=== PATIENT | male | born 1980 | race Caucasian/White ===

== ENCOUNTER → 2021-02-09 | Outpatient (CLI) | payer OTHER | LOC: ECHO 08:00 | DX: R06.02 Shortness of breath (principal); Z82.49 Family history of ischemic heart disease and other diseases of the circulatory system; I42.9 Cardiomyopathy, unspecified | CPT/HCPCS: ECHO; 93306 ==

== ENCOUNTER → 2021-03-16 | Outpatient (CLI) | payer OTHER | LOC: HEART 5 10:50 | DX: R06.02 Shortness of breath (principal) ==

== ENCOUNTER → 2021-05-01 | Outpatient (CLI) | payer OTHER ==
[2021-05-02 09:14] LABS: ALPHA-1-ANTITRYPSIN, SERUM 121 mg/dL (95-164); HBSAG SCREEN Negative (Negative); HEP A AB, IGM Negative (Negative); HEP B CORE AB, IGM Negative (Negative); HEP C VIRUS AB <0.1 (0.0-0.9)
[2021-05-02 15:09] LABS: MITOCHONDRIAL (M2) ANTIBODY <20.0 Units (0.0-20.0)
== END ==
LOC: US 04-23 09:15
PROVIDERS: Internal Medicine Gastroenterology
DX: R74.8 Abnormal levels of other serum enzymes (principal); R79.89 Other specified abnormal findings of blood chemistry; K76.0 Fatty (change of) liver, not elsewhere classified
CPT/HCPCS: 36415; 76700; 80074; 82103; 82728; 83540; 83550; 86038